=== PATIENT | male | born 1990 | race Caucasian/White ===

== ENCOUNTER 2017-08-06 11:09 | Emergency (ER) | payer OTHER ==
[2017-08-06 11:54] LABS: microscopic required? NO
[2017-08-06 12:00] LABS: BASOPHIL % 0.5 % (0-2); PLATELET COUNT 305 x10^3mcL (130-400); RED CELL DISTRIBUTION WIDTH 13.4 % (11.5-14.5)
[2017-08-06 12:04] LABS: urine erythrocyte NEGATIVE (NEGATIVE)
[2017-08-06 12:10] LABS: CALCIUM 8.9 mg/dL (8.5-10.1); CARBON DIOXIDE 33.5 mmol/L (21-32); CHLORIDE SERUM 104 mmol/L (98-107); CREATININE SERUM 0.9 mg/dL (0.7-1.3); GFR1 > 60 mL/min; GLUCOSE SERUM 97 mg/dL (74-106); POTASSIUM SERUM 3.6 mmol/L (3.5-5.1); SODIUM SERUM 139 mmol/L (136-145)
[2017-08-06 12:17] LABS: AMPHETAMINE QUAL UR NONE DETECTED (NEG <=1000)
[2017-08-06 12:22] LABS: ALKALINE PHOSPHATASE 64 U/L (46-116); ALT/SGPT 28 U/L (16-63); AST/SGOT 14 U/L (15-37); BILIRUBIN TOTAL 0.4 mg/dL (0.20-1.00); CHOLESTEROL 156 mg/dL (<200); T4(THYROXINE) 9.4 ug/dL (4.7-13.3); TOTAL PROTEIN, SERUM 7.4 g/dL (6.4-8.2)
[2017-08-06 12:54] LABS: HDL CHOLESTEROL 66 mg/dL (40-60)
[2017-08-06 13:22] VITALS: BP 148/85
== END 2017-08-06 13:22 | disposition home or self-care (01) ==
LOC: ED 11:09
PROVIDERS: Emergency Medicine
DX: R35.0 Frequency of micturition (principal); F12.90 Cannabis use, unspecified, uncomplicated
CPT/HCPCS: 36415; 83880

== ENCOUNTER 2017-11-29 16:15 | Emergency (ER) | payer OTHER ==
[~2017-11-29] VITALS: Ht 177.8 cm; Wt 97.1 kg
[2017-11-29 16:34] VITALS: Ht 177.8 cm; Wt 97.1 kg
[2017-11-29 18:50] VITALS: BP 143/70
== END 2017-11-29 18:50 | disposition home or self-care (01) ==
LOC: ED 16:15
DX: S61.011A Laceration without foreign body of right thumb without damage to nail, initial encounter (principal); Z88.2 Allergy status to sulfonamides; W45.8XXA Other foreign body or object entering through skin, initial encounter; Y93.89 Activity, other specified; Y92.89 Other specified places as the place of occurrence of the external cause; Y99.8 Other external cause status
CPT/HCPCS: J2001; Q0092

== ENCOUNTER 2018-09-10 10:36 | Emergency (ER) | payer OTHER ==
[~2018-09-10] VITALS: Ht 165.1 cm; Wt 104.8 kg
[2018-09-10 10:41] VITALS: Ht 165.1 cm; Wt 104.8 kg
[2018-09-10 11:55] VITALS: BP 96/58
== END 2018-09-10 11:55 | disposition home or self-care (01) ==
LOC: ED 10:36
DX: Z13.89 Encounter for screening for other disorder (principal); R03.0 Elevated blood-pressure reading, without diagnosis of hypertension; F17.210 Nicotine dependence, cigarettes, uncomplicated; Z88.2 Allergy status to sulfonamides

== ENCOUNTER 2018-10-18 14:22 | Emergency (ER) | payer OTHER ==
[~2018-10-18] VITALS: Ht 172.7 cm; Wt 103.0 kg
[2018-10-18 14:54] VITALS: Ht 172.7 cm; Wt 103.0 kg
[2018-10-18 17:52] VITALS: BP 153/51
== END 2018-10-18 17:52 | disposition home or self-care (01) ==
LOC: ED 14:22
DX: S29.012A Strain of muscle and tendon of back wall of thorax, initial encounter (principal); S39.011A Strain of muscle, fascia and tendon of abdomen, initial encounter; F17.210 Nicotine dependence, cigarettes, uncomplicated; Z88.2 Allergy status to sulfonamides; Z71.6 Tobacco abuse counseling; X50.0XXA Overexertion from strenuous movement or load, initial encounter; Y93.89 Activity, other specified; Y92.89 Other specified places as the place of occurrence of the external cause; Y99.8 Other external cause status
CPT/HCPCS: 99406

== ENCOUNTER 2019-02-20 19:04 | Emergency (ER) | payer SELFPAY ==
[~2019-02-20] VITALS: Ht 172.7 cm; Wt 107.5 kg
[2019-02-20 19:20] VITALS: Ht 172.7 cm; Wt 107.5 kg
[2019-02-20 23:44] VITALS: BP 138/84
== END 2019-02-20 23:44 | disposition home or self-care (01) ==
LOC: ED 19:04
DX: K64.5 Perianal venous thrombosis (principal); Z88.2 Allergy status to sulfonamides
CPT/HCPCS: J2001

== ENCOUNTER 2019-02-22 12:39 | Emergency (ER) | payer MEDICAID ==
[~2019-02-22] VITALS: Ht 172.7 cm; Wt 103.0 kg
[2019-02-22 12:46] VITALS: Ht 172.7 cm; Wt 103.0 kg
[2019-02-22 13:31] VITALS: BP 145/62
== END 2019-02-22 13:31 | disposition home or self-care (01) ==
LOC: ED 12:39
DX: K64.5 Perianal venous thrombosis (principal); Z48.01 Encounter for change or removal of surgical wound dressing; Z88.2 Allergy status to sulfonamides

== ENCOUNTER 2019-06-05 22:06 | Emergency (ER) | payer MEDICAID ==
[~2019-06-05] VITALS: Ht 172.7 cm; Wt 104.3 kg
[2019-06-05 23:13] VITALS: BP 151/103; Ht 172.7 cm; Wt 104.3 kg
== END 2019-06-06 00:22 | disposition left against medical advice (07) ==
LOC: ED 22:06
DX: Z53.21 Procedure and treatment not carried out due to patient leaving prior to being seen by health care provider (principal)